=== PATIENT | female | born 1995 | race Caucasian/White ===

== ENCOUNTER 2016-06-04 08:52 | Emergency (ER) | payer BC ==
[~2016-06-04] VITALS: Wt 128.0 kg
[~2016-06-04 08:52] MED LIST: CIPR-193 PO; DICY20TA59 PO; ONDA4TAB95 PO; TRAM50TA2 PO; TYL500 PO
[2016-06-04] MEDS ORDERED: KETOROLAC 60 MG INJ IM STA (09:53)
[2016-06-04] MEDS ORDERED: DIAZEPAM 2 MG TAB PO ONE (10:00)
--- NOTE | 2016-06-04 10:55 | RADRPT ---
PROCEDURE: XR lumbosacral Spine Series CLINICAL INDICATION: Lower back pain TECHNIQUE: 3 standard radiographs were taken of the lumbosacral spine. COMPARISON: None FINDINGS: Alignment: There is a minimal dextroscoliotic curve to the lumbar spine but no subluxation is eviden t. Disk spaces: the disk spaces are adequately maintained. Osseous structures: appear intact with no fracture or osseous destruction identified. There is mild anterior spondylosis most evident at T12-L1. Joint spaces: the facet joints joints appear unremarkable. The sacroiliac joints appear normal. Soft tissues: appear unremarkable. IMPRESSION: 1. Minimal dextroscoliotic curve to the lumbar spine. 2. Minimal anterior spondylosis. Physician Van Date Time Electronically viewed and signed by Katharina Yu Physician on 06/04/2016 10:55 RH/
[2016-06-04] MEDS ORDERED: IBUP-1542 PO (11:14)
[2016-06-04] MEDS ORDERED: ORPH100T PO (11:14)
--- NOTE | 2016-06-04 11:21 | ERD ---
ER Documentation Chief Complaint Date/Time DATE: 06/04/16 TIME: 11:18 Chief Complaint low back pain non traumatic for the past few days. chronic issue HPI This is a 21-year-old female presents to the ER with lower back pain for the last 3 days. Patient has not fallen and has not had any trauma to her back. Patient denies any fevers or chills. She denies any nausea vomiting or diarrhea. She denies any urinary frequency, dysuria or hematuria. Patient states that pain is constant she rates it as 5 out of 10. Patient states that pain is better compared to yesterday. It is only located in her lower back. It is nonradiating. She denies any abdominal pain. Patient tried taking Advil for her pain and it did help. ROS 12 point review of systems was done, all negative except per HPI. Medications Home Meds Active Scripts Orphenadrine Citrate (Norflex) 100 Mg Tablet.sa, 100 MG PO BID for 3 Days, TAB.SA Prov:MADONNA TYSON 06/04/16 Ibuprofen* (Motrin*) 600 Mg Tab, 600 MG PO Q6, #30 TAB Prov:MADONNA TYSON 06/04/16 Ciprofloxacin Hcl* (Ciprofloxacin Hcl*) 250 Mg Tablet, 250 MG PO BID, #12 TAB Prov:KATELYN MCPHERSON MD 08/04/14 Tramadol HCl (Tramadol HCl) 50 Mg Tab, 50 MG PO Q6H Y for PAIN, #30 TAB Prov:KATELYN MCPHERSON MD 08/04/14 Reported Medications Ondansetron Hcl* (Ondansetron Hcl*) 4 Mg Tablet, 4 MG PO Q4-6 Y for NAUSEA, TAB 07/29/14 Dicyclomine Hcl* (Bentyl*) 20 Mg Tablet, 20 MG PO TID, TAB 07/29/14 Acetaminophen* (Tylenol*) 500 Mg Tab, 500 MG PO Q8 Y for MILD PAIN LEVEL 1-3, TAB 07/29/14 Allergies Allergies: Coded Allergies: No Known Drug Allergies (Verified Allergy, Mild, 06/04/16) PMhx/Soc Medical and Surgical Hx: pt denies Surgical Hx History of Surgery: No Anesthesia Reaction: No Hx Neurological Disorder: No Hx Respiratory Disorders: No Hx Cardiac Disorders: No Hx Psychiatric Problems: No Hx Miscellaneous Medical Probl: No Hx Alcohol Use: No Hx Substance Use: No Hx Tobacco Use: No Smoking Status: Never smoker Physical Exam Vitals Vital Signs Date Time Temp Pulse Resp B/P Pulse Ox O2 Delivery O2 Flow Rate FiO2 06/04/16 08:58 98.0 79 18 137/78 96 Physical Exam GENERAL: The patient is well developed and appropriate for usual state of health , in no apparent distress. NECK: C-spine is soft and supple. There is no cervical lymphadenopathy. CHEST: Clear to auscultation bilaterally. There are no rales, wheezes or rhonchi. HEART: Regular rate and rhythm. No murmurs, clicks, rubs or gallops. ABDOMEN: Soft, nontender and nondistended. Good bowel sounds. No rebound or guarding. No gross peritonitis. No gross organomegaly or masses. No Cantrell sign or McBurney point tenderness. No pulsatile abdominal mass. BACK: No midline or flank tenderness. Tender to palpation from L3-L5. Tense paraspinal muscles. Negative leg raise test. No step- offs. EXTREMITIES: Equal pulses bilaterally. There is no peripheral clubbing, cyanosis or edema. No focal swelling or erythema. Full range of motion. Grossly neurovascularly intact. NEURO: Alert and oriented. Cranial nerves II through XII are intact. Motor strength in all 4 extremities with 5/5 strength. Sensation grossly intact. Normal speech and gait. SKIN: There is no apparent rash or petechia. The skin is warm and dry. Results 24 hrs Current Medications Medications (Trade) Dose Ordered Sig/Madelin Route PRN Reason Start Time Stop Time Status Last Admin Dose Admin Ketorolac Tromethamine (Toradol) 60 mg ONCE STAT IM 06/04/16 09:53 06/04/16 09:56 DC 06/04/16 10:23 Diazepam (Valium) 2 mg ONCE ONCE PO 06/04/16 10:00 06/04/16 10:01 DC 06/04/16 10:49 Procedures/MDM Differential Diagnosis includes but is not limited to back strain, vertebral fracture, epidural abscess, cauda equina, herniated disc, AAA rupture, kidney stones, UTI, pyelonephritis. She is afebrile and well-appearing. She does not have any history of trauma. Patient is neurovascularly intact with full range of motion of bilateral extremities. Upon reexamination, Toradol helped patient 's pain. Suspicion for UTI pyelonephritis is low as patient does not have any urinary symptoms. I doubt kidney stone. With the Profen with Norflex. She is to follow-up with a primary care doctor within 1-2 days or return to ER sooner if symptoms worsen. Medical decision making sure with the patient understands and agrees with plan. Departure Diagnosis: Primary Impression: Back pain Condition: Stable Patient Instructions: Back Pain (Acute Or Chronic) Referrals: BENIGNO FIERRO (PCP) Additional Instructions: Call your primary care doctor TOMORROW for an appointment during the next 1-2 days.See the doctor sooner or return here if your condition worsens before your appointment time. MADONNA TYSON Jun 04, 2016 11:21
== END 2016-06-04 11:20 | disposition home or self-care (01) ==
LOC: FTE 08:52
DX: M54.5 Low back pain (principal)
CPT/HCPCS: 72100; 96372; 99284; J1885

== ENCOUNTER 2017-12-24 14:14 | Emergency (ER) | END 2017-12-24 17:04 | disposition home or self-care (01) ==

== ENCOUNTER 2018-07-25 20:53 | Emergency (ER) | payer BC, OTHER ==
[~2018-07-25] VITALS: Ht 172.7 cm; Wt 143.1 kg
[~2018-07-25 20:53] MED LIST changes: +DIAZ5TAB PO; +IBUP-1542 PO; +MED4DP PO; +ORPH100T PO
[2018-07-25 20:57] VITALS: BP 159/82; PULSE 88; RESP 16; Ht 172.7 cm; Wt 143.1 kg
[2018-07-25] MEDS ORDERED: KETOROLAC 60 MG INJ IM STA (22:38)
[2018-07-25] MEDS ORDERED: LORAZEPAM 1 MG TAB PO ONE (23:00)
[2018-07-25] MEDS ORDERED: DEXAMETHASONE 10 MG/ML 1 ML INJ IM ONE (23:00)
[2018-07-25] MEDS ORDERED: NAPR-985 PO (23:29)
[2018-07-25] MEDS ORDERED: CYCL10TA7 PO (23:29)
--- NOTE | 2018-07-26 01:05 | ERD ---
ER Documentation Chief Complaint Chief Complaint pt reports back pain since saturday HPI 23-year-old female previously healthy presenting to the emergency department complaining low back pain with radiation down her right leg constantly for the past 4 days. She states it began after lifting a heavy object at work. Her pain is rated 5/10 at rest. She took ibuprofen at home with some relief. Symptoms are overall worse with walking. She denies fevers, dysuria, loss of bowel or bladder function, or other symptoms at this time. ROS All systems reviewed and are negative except as per history of present illness. Medications Home Meds Active Scripts Naproxen* (Naprosyn*) 500 Mg Tablet, 500 MG PO BID PRN for PAIN AND/OR INFLAMMATION, #30 TAB Prov:AURE AGUIRRE PA-C 07/25/18 Cyclobenzaprine Hcl* (Cyclobenzaprine Hcl*) 10 Mg Tablet, 10 MG PO TID, #15 TAB Prov:AURE AGUIRRE PA-C 07/25/18 Ibuprofen* (Motrin*) 600 Mg Tab, 600 MG PO Q6, #30 TAB Prov:MADONNA TYSON 12/24/17 Methylprednisolone* (Medrol* DOSE PACK) 4 Mg/Dose-Pack Tab.ds.pk, 4 MG PO . DIRECTED for 6 Days, PACKET Prov:MADONNA TYSON 12/24/17 Diazepam* (Valium*) 5 Mg Tablet, 5 MG PO Q8, #10 TAB Prov:MADONNA TYSON 12/24/17 Orphenadrine Citrate (Norflex) 100 Mg Tablet.sa, 100 MG PO BID for 3 Days, TAB.SA Prov:MADONNA TYSON 06/04/16 Ibuprofen* (Motrin*) 600 Mg Tab, 600 MG PO Q6, #30 TAB Prov:MADONNA TYSON 06/04/16 Ciprofloxacin Hcl* (Ciprofloxacin Hcl*) 250 Mg Tablet, 250 MG PO BID, #12 TAB Prov:KATELYN MCPHERSON MD 08/04/14 Tramadol HCl (Tramadol HCl) 50 Mg Tab, 50 MG PO Q6H PRN for PAIN, #30 TAB Prov:KATELYN MCPHERSON MD 08/04/14 Reported Medications Ondansetron Hcl* (Ondansetron Hcl*) 4 Mg Tablet, 4 MG PO Q4-6 PRN for NAUSEA, TAB 4/30/15 Dicyclomine Hcl* (Bentyl*) 20 Mg Tablet, 20 MG PO TID, TAB 07/29/14 Acetaminophen* (Tylenol*) 500 Mg Tab, 500 MG PO Q8 PRN for MILD PAIN LEVEL 1-3, TAB 07/29/14 Allergies Allergies: Coded Allergies: No Known Drug Allergies (Verified Allergy, Mild, 07/25/18) PMhx/Soc Medical and Surgical Hx: pt denies Surgical Hx History of Surgery: No Anesthesia Reaction: No Hx Neurological Disorder: No Hx Respiratory Disorders: No Hx Cardiac Disorders: No Hx Psychiatric Problems: No Hx Miscellaneous Medical Probl: Yes (back pains) Hx Alcohol Use: Yes (socially) Hx Substance Use: No Hx Tobacco Use: No Smoking Status: Never smoker FmHx Family History: No diabetes Physical Exam Vitals Vital Signs Date Temp Pulse Resp B/P (MAP) Pulse Ox O2 O2 Flow FiO2 Time Delivery Rate 07/25/18 98.3 88 16 159/82 97 20:57 (107) Physical Exam Const: No acute distress Head: Atraumatic Eyes: Normal Conjunctiva ENT: Normal External Ears, Nose and Mouth. Neck: Full range of motion. No meningismus. Resp: Clear to auscultation bilaterally Cardio: Regular rate and rhythm, no murmurs Skin: No petechiae or rashes Back: No midline or flank tenderness. Tenderness palpation of the paraspinal muscles of the lumbar spine on the right. Positive straight leg raise on the right. Ext: No cyanosis, or edema Neur: Awake and alert Psych: Normal Mood and Affect Results 24 hrs Laboratory Tests Test 07/25/18 23:00 07/25/18 23:02 POC Beta HCG, Qualitative NEGATIVE Bedside Urine pH (LAB) 5.5 Bedside Urine Protein (LAB) Negative Bedside Urine Glucose (UA) Negative Bedside Urine Ketones (LAB) Negative Bedside Urine Blood Negative Bedside Urine Nitrite (LAB) Negative Bedside Urine Leukocyte Esterase (L 1+ Current Medications Medications Dose Sig/Madelin Start Time Status Last (Trade) Ordered Route PRN Stop Time Admin Dose Reason Admin Lorazepam 1 mg ONCE ONCE 07/25/18 DC 07/25/18 (Ativan) PO 23:00 22:55 07/25/18 23:01 Ketorolac 60 mg ONCE STAT 07/25/18 DC 07/25/18 Tromethamine IM 22:38 23:11 (Toradol) 07/25/18 22:39 10 mg ONCE ONCE 07/25/18 DC 07/25/18 Dexamethasone IM 23:00 23:05 (Decadron) 07/25/18 23:01 Procedures/MDM 23-year-old female presenting to the emergency department with signs and symptoms most consistent with a low back pain with sciatica. Patient was administered IM Toradol and IM Decadron and p.o. Ativan in the department with good response. She was significantly improved on reevaluation. Patient did have 1+ leukocyte on urinalysis which is likely secondary to contamination as the patient denied dysuria. Symptoms likely secondary to musculoskeletal etiology. Patient's musculoskeletal symptoms have stabilized while they have been evaluated in the department and are appropriate for outpatient work up. No evidence of cauda equina, cord compression, infiltrative, or infectious etiology. No evidence of life-threatening pathology at time of discharge. Pt/family in agreement with discharge plan/diagnosis. Pt/family advised to return immediately with any new or worsening symptoms. Follow-up with primary care physician within the next 1-2 days. Patient's blood pressure was elevated (>120/80) but appears stable without evidence of hypertension emergency or urgency. The patient is to follow-up and pursue outpatient monitoring and therapy with their primary care physician within 1 week and return immediately if they have any new, worsening, or concerning symptoms. Disclaimer: Inadvertent spelling and grammatical errors are likely due to EHR/dictation software use and do not reflect on the overall quality of patient care. Also, please note that the electronic time recorded on this note does not necessarily reflect the actual time of the patient encounter. Departure Diagnosis: Primary Impression: Low back pain with sciatica Condition: Fair Patient Instructions: Back Pain W/ Sciatica Referrals: COMMUNITY CLINICS YOU HAVE RECEIVED A MEDICAL SCREENING EXAM AND THE RESULTS INDICATE THAT YOU DO NOT HAVE A CONDITION THAT REQUIRES URGENT TREATMENT IN THE EMERGENCY DEPARTMENT. FURTHER EVALUATION AND TREATMENT OF YOUR CONDITION CAN WAIT UNTIL YOU ARE SEEN IN YOUR DOCTORS OFFICE WITHIN THE NEXT 1-2 DAYS. IT IS YOUR RESPONSIBILITY TO MAKE AN APPOINTMENT FOR FOLOW-UP CARE. IF YOU HAVE A PRIMARY DOCTOR --you should call your primary doctor and schedule an appointment IF YOU DO NOT HAVE A PRIMARY DOCTOR YOU CAN CALL OUR PHYSICIAN REFERRAL HOTLINE AT IF YOU CAN NOT AFFORD TO SEE A PHYSICIAN YOU CAN CHOSE FROM THE FOLLOWING [place] [facility] CL[facility]ICS [facility] [address] [facility] [address] [facility] [address] [facility] [address] [facility]. [facility] [address] [facility]. [facility] [address] Additional Instructions: Call your primary care doctor TOMORROW for an appointment during the next 1-2 days.See the doctor sooner or return here if your condition worsens before your appointment time. AURE AGUIRRE PA-C Jul 26, 2018 01:05
== END 2018-07-25 23:55 | disposition home or self-care (01) ==
LOC: FTE 20:53
DX: M54.40 Lumbago with sciatica, unspecified side (principal)
CPT/HCPCS: 81003; 81025; 96372; 99284; J1100; J1885

== ENCOUNTER 2018-07-28 19:34 | Emergency (ER) | payer BC, OTHER ==
[~2018-07-28] VITALS: Ht 172.7 cm; Wt 143.2 kg
[~2018-07-28 19:34] MED LIST changes: +CYCL10TA7 PO; +NAPR-985 PO
[2018-07-28 19:38] VITALS: BP 144/74; PULSE 83; RESP 19; Ht 172.7 cm; Wt 143.2 kg
[2018-07-28] MEDS ORDERED: PRED20TA PO (22:13)
[2018-07-28] MEDS ORDERED: TRAM50TA2 PO (22:13)
--- NOTE | 2018-07-28 22:21 | ERD ---
ER Documentation Chief Complaint Chief Complaint BACK PAIN RADIATES RIGHT LEG X1DAY; SEEN X3DAYS AGO; NO KNOWN INJ HPI 23-year-old female with no reported past medical surgical history who presents with complaint of worsening lower back pain past 3 days. Pain worse with ambulation. Patient seen in this ED on the of this month for similar complaints and given Toradol injection, steroids and sent home with naproxen and Flexeril. Since that time patient states pain is worsening. She denies red flag symptoms since that time with only complaints being worsening pain. Patient states she has taken medications as prescribed. She otherwise without complaint. At time of examination patient able to take several steps around examination room with stable gait although with complaint of pain. ROS All systems reviewed and are negative except as per history of present illness. Medications Home Meds Active Scripts Prednisone* (Prednisone*) 20 Mg Tab, 20 MG PO DAILY for 4 Days, TAB Prov:ANDRÉS CAMPOS PA-C 07/28/18 Tramadol HCl (Tramadol HCl) 50 Mg Tablet, 50 MG PO Q4 PRN for PAIN, #20 TAB Prov:ANDRÉS CAMPOS PA-C 07/28/18 Naproxen* (Naprosyn*) 500 Mg Tablet, 500 MG PO BID PRN for PAIN AND/OR INFLAMMATION, #30 TAB Prov:AURE AGUIRRE PA-C 07/25/18 Cyclobenzaprine Hcl* (Cyclobenzaprine Hcl*) 10 Mg Tablet, 10 MG PO TID, #15 TAB Prov:AURE AGUIRRE PA-C 07/25/18 Ibuprofen* (Motrin*) 600 Mg Tab, 600 MG PO Q6, #30 TAB Prov:MADONNA TYSON 12/24/17 Methylprednisolone* (Medrol* DOSE PACK) 4 Mg/Dose-Pack Tab.ds.pk, 4 MG PO . DIRECTED for 6 Days, PACKET Prov:MADONNA TYSON 12/24/17 Diazepam* (Valium*) 5 Mg Tablet, 5 MG PO Q8, #10 TAB Prov:MADONNA TYSON 12/24/17 Orphenadrine Citrate (Norflex) 100 Mg Tablet.sa, 100 MG PO BID for 3 Days, TA B.SA Prov:MADONNA TYSON 06/04/16 Ibuprofen* (Motrin*) 600 Mg Tab, 600 MG PO Q6, #30 TAB Prov:MADONNA TYSON Katherine 06/04/16 Ciprofloxacin Hcl* (Ciprofloxacin Hcl*) 250 Mg Tablet, 250 MG PO BID, #12 TAB Prov:KATELYN MCPHERSON MD 08/04/14 Tramadol HCl (Tramadol HCl) 50 Mg Tab, 50 MG PO Q6H PRN for PAIN, #30 TAB Prov:KATELYN MCPHERSON MD 08/04/14 Reported Medications Ondansetron Hcl* (Ondansetron Hcl*) 4 Mg Tablet, 4 MG PO Q4-6 PRN for NAUSEA, TAB 07/29/14 Dicyclomine Hcl* (Bentyl*) 20 Mg Tablet, 20 MG PO TID, TAB 07/29/14 Acetaminophen* (Tylenol*) 500 Mg Tab, 500 MG PO Q8 PRN for MILD PAIN LEVEL 1-3, TAB 07/29/14 Allergies Allergies: Coded Allergies: No Known Drug Allergies (Verified Allergy, Mild, 07/25/18) PMhx/Soc History of Surgery: No Anesthesia Reaction: No Hx Neurological Disorder: No Hx Respiratory Disorders: No Hx Cardiac Disorders: No Hx Psychiatric Problems: No Hx Miscellaneous Medical Probl: Yes (back pains) Hx Alcohol Use: Yes (socially) Hx Substance Use: No Hx Tobacco Use: No FmHx Family History: No diabetes, No coronary disease, No other Physical Exam Vitals Vital Signs Date Temp Pulse Resp B/P (MAP) Pulse Ox O2 O2 Flow FiO2 Time Delivery Rate 07/28/18 98.8 83 19 144/74 98 19:38 (97) Physical Exam I have reviewed the triage vital signs. Const: Orbitally obese, appears stated age Eyes: PERRL, no conjunctival injection HENT: NCAT, Neck supple without meningismus CV: RRR, Warm, well-perfused extremities RESP: CTAB, Unlabored respiratory effort GI: soft, non-tender, non-distended, no masses MSK: No gross deformities appreciated, no paraspinal tenderness, full range of motion, negative straight leg test,'s 5 out of 5 strength throughout bilateral lower extremities, SI LT throughout Skin: Warm, dry. No rashes Neuro: grossly non focal Psych: Appropriate mood and affect. Procedures/MDM 23-year-old female who presents with complaint of worsening lower back pain after being seen in his ED 3 days ago. She has no red flags symptoms which are concerning for pathology warranting further emergent work-up or imaging. I have advised the patient that she will need to follow-up with PMD just in case her symptoms do not improve with treatment for further work-up or and/or imaging. Plan: We will discharge with tramadol, course of steroids, advised patient to follow-up with PMD just in case she may require additional nonemergent work-up Low suspicion for acute cord compression or cauda equina at this time, given presentation and symptoms, including epidural abscess or hematoma. Patient has no history of malignancy, active or distant history. Patient has no unexplained weight loss. No recent fevers, rigors, malaise, or recent infection. No history of IVDU or skin-popping. Patient does not have any history concerning for saddle anesthesia/perianal sensory loss or complaining of decreased rectal tone. Patient does not have urinary retention or inability to control urine from overflow. Patient has no tenderness overlying spinous process. Patient has no focal weakness on examination. Given exam and history, low suspicion for cord compression, cauda equina, epidural abscess/hematoma. Distally neurovascularly intact. Query likely musculoskeletal component. Discussed pain control,and follow up with PMD. Cautious return precautions discussed w/ full understanding DISPOSITION PLAN: We discussed follow up with the patient's primary care doctor within 24 to 48 hours. Patient counseled regarding my diagnostic impression and care plan. Prior to discharge all questions answered. Pt agrees with treatment plan and understands strict return precautions. Precautionary instructions provided including instructions to return to the ER if not improving or for any worsening or changing symptoms or concerns. Disclaimer: Inadvertent spelling and grammatical errors are likely due to EHR/dictation software use and do not reflect on the overall quality of patient care. Also, please note that the electronic time recorded on this note does not necessarily reflect the actual time of the patient encounter. Departure Diagnosis: Primary Impression: Back pain Condition: Stable Patient Instructions: Back Pain (Acute Or Chronic), Back Pain W/ Sciatica Referrals: COMMUNITY CLINICS YOU HAVE RECEIVED A MEDICAL SCREENING EXAM AND THE RESULTS INDICATE THAT YOU DO NOT HAVE A CONDITION THAT REQUIRES URGENT TREATMENT IN THE EMERGENCY DEPARTMENT. FURTHER EVALUATION AND TREATMENT OF YOUR CONDITION CAN WAIT UNTIL YOU ARE SEEN IN YOUR DOCTORS OFFICE WITHIN THE NEXT 1-2 DAYS. IT IS YOUR RESPONSIBILITY TO MAKE AN APPOINTMENT FOR FOLOW-UP CARE. IF YOU HAVE A PRIMARY DOCTOR --you should call your primary doctor and schedule an appointment IF YOU DO NOT HAVE A PRIMARY DOCTOR YOU CAN CALL OUR PHYSICIAN REFERRAL HOTLINE AT IF YOU CAN NOT AFFORD TO SEE A PHYSICIAN YOU CAN CHOSE FROM THE FOLLOWING [facility] [address] [facility] [address] [facility] [address] [facility] [address] [facility] [facility] [address] [facility]. [facility] [address] Additional Instructions: Call your primary care doctor TOMORROW for an appointment during the next 2-3 days.See the doctor sooner or return here if your condition worsens before your appointment time. You need to follow-up within the next 2 weeks with your PMD. You might require additional work-up or additional imaging such as an MRI if your symptoms do not improve in the next 1 to 2 weeks. ANDRÉS CAMPOS PA-C Jul 28, 2018 22:21
== END 2018-07-28 22:25 | disposition home or self-care (01) ==
LOC: FTE 19:34
DX: M54.5 Low back pain (principal)
CPT/HCPCS: 99283